=== PATIENT | male | born 1985 | race Caucasian/White ===

== ENCOUNTER 2018-01-20 02:45 | Emergency (ER) | payer OTHER ==
[2018-01-20 03:05] VITALS: BMI 28.1
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
[2018-01-20 03:13] VITALS: O2SAT 100
[2018-01-20 03:54] LABS: HEMOGLOBIN 16.5 g/dL (12.0-18.0); MEAN CELL VOLUME 87.7 fl (80.0-94.0); MEAN CORPUSCULAR HEMOGLOBIN 30.3 pg (27.0-31.0); MEAN CORPUSCULAR HGB CONC 34.5 g/dL (33.0-37.0); RBC 5.45 Mil/uL (4.40-5.90); RED CELL DISTRIBUTION WIDTH 13.3 % (11.5-14.5); WHITE BLOOD COUNT 7.8 K/uL (4.8-10.8)
[2018-01-20 03:55] LABS: BLOOD UREA NITROGEN 9 mg/dl (9-20); CALCIUM 9.8 mg/dL (8.4-10.2); GFR AFRICAN-AMERICAN > 60; GFR NON-AFRICAN AMERICAN > 60
[2018-01-20] MEDS ORDERED: Sodium Chloride 0.9% 1,000 ML IV STA (05:54)
[2018-01-20] MEDS ORDERED: Iohexol 300 100 ML IJ ONE ×2 (06:57→09:33)
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
[2018-01-20] MEDS ORDERED: Potassium Chl 20 mEq in NS 1,000 ML IV ONE (11:45)
[2018-01-20 12:09] VITALS: TEMP 97.6
[2018-01-20 12:55] VITALS: BP 138/79; PULSE 85; RESP 14
--- NOTE | 2018-01-20 13:07 | RAD ---
HISTORY: chest pain COMPARISON: No prior. FINDINGS: LUNGS: No active pulmonary disease. PLEURA: No significant pleural effusion identified, no pneumothorax apparent. CARDIOVASCULAR: Normal. OSSEOUS STRUCTURES: No significant abnormalities. VISUALIZED UPPER ABDOMEN: Normal. OTHER FINDINGS: None. IMPRESSION: No active disease.
[2018-01-20 13:38] LABS: INR 1.1 (0.9-1.2); PARTIAL THROMBOPLASTIN TIME 37.4 Seconds (25.6-37.1); PROTHROMBIN TIME 12.1 Seconds (9.8-13.1)
--- NOTE | 2018-01-21 07:32 | CARD ---
APPROVED REPORT EKG Measurement Heart [id number] <Conclusion> Normal sinus rhythm Early repolarization Normal ECG
== END 2018-01-20 12:57 | disposition short-term general hospital (02) ==
LOC: H.ER 02:45
DX: R10.9 Unspecified abdominal pain (principal); S39.91XA Unspecified injury of abdomen, initial encounter; V43.52XA Car driver injured in collision with other type car in traffic accident, initial encounter
CPT/HCPCS: 71045; 74177; 80048; 85027; 85610; 85730; 86850; 86900; 93005; 96374; 99285; J2270; J7040; Q9967